=== PATIENT | female | born 1945 | race Caucasian/White ===

== ENCOUNTER 2018-05-13 17:15 | Inpatient (IN) | payer MEDICARE, MEDICAID ==
[~2018-05-13] VITALS: Ht 157.5 cm; Wt 90.2 kg
--- NOTE | ~2018-05-13 | PN ---
PATIENT:KIMBERLEE MATTHEW MEDICAL RECORD: [id number] LOCATION:PATRICIO Llamas112 ADMISSION DATE: 05/13/18 PROGRESS NOTE DATE OF SERVICE: 05/25/2018 SUBJECTIVE: The patient's case was discussed with staff. She has no new complaint. OBJECTIVE: The patient is in good behavioral control with limited insight about her condition, but she is severely impaired cognitively. Earlier today, she was actively hallucinating and carrying on a conversation with 2 people not present, her mother and someone else. She does not have any real recollection of this. I am concerned that perhaps some of her agitation is related to discomfort that she is unable to express. Based on this, I am going to treat her with a low but scheduled dose of Ultram. ASSESSMENT: No change in diagnoses. PLAN: The patient will be started on a scheduled dose of Ultram to see if that relieves some of her discomfort. If so, it may improve her behavior. Her long-term prognosis is guarded. TRANSINT:[id number] Voice Confirmation ID: [id number] DOCUMENT ID: [id number] CALEB YU MD at 1440 CC: [id number] DICTATION DATE: 05/25/18 1347 SALES AND TRAINING SPECIALIST: 05/25/18 1355 ADM IN [place] [id number] [place] [address]
--- NOTE | ~2018-05-13 | PN ---
PATIENT:KIMBERLEE MATTHEW MEDICAL RECORD: [id number] LOCATION:PATRICIO DiasAva112 ADMISSION DATE: 05/13/18 PROGRESS NOTE DATE OF SERVICE: 05/31/2018 SUBJECTIVE: The patient's case was discussed with staff. She has no new complaint. OBJECTIVE: The patient continues to be very disorganized. She answers questions but they really do not make much sense. She is continuing to yell out almost constantly. She denies overt psychotic symptoms, but then she is displaying them. I am concerned that the patient may be having a great deal of discomfort and is just so demented, she cannot tell us what is going on. Based on this line of thinking, she is going to be taken off of the scheduled Ultram and placed on a Duragesic patch. I think her long-term prognosis is guarded. TRANSINT:[id number] Voice Confirmation ID: [id number] DOCUMENT ID: [id number] CALEB YU MD at 1351 CC: [id number] DICTATION DATE: 05/31/18 1241 GOVERNMENT AFFAIRS RESEARCHER: 05/31/181950 ADM IN [facility] [address] [place] [address]
--- NOTE | ~2018-05-13 | PN ---
PATIENT:KIMBERLEE MATTHEW MEDICAL RECORD: [id number] LOCATION:PATRICIO LlamasRoxane ADMISSION DATE: 05/13/18 PROGRESS NOTE DATE OF SERVICE: 05/29/2018 SUBJECTIVE: The patient's case was discussed with staff. She has no new complaint. OBJECTIVE: The patient is in good behavioral control with limited insight about her condition. She does tolerate her medicines well. She is calmer today, but still has some behavioral outbursts and has been yelling for her mother some. She is still not eating very well, but she is morbidly obese. In the long run this may develop into a serious nutritional problem, but it would help her to lose some weight. We just do not want her to stop eating altogether. TRANSINT:[id number] Voice Confirmation ID: [id number] DOCUMENT ID: [id number] CALEB YU MD at 1234 CC: [id number] DICTATION DATE: 05/29/18 1417 AIR TRAFFIC CONTROL SPECIALIST: 05/29/18 1423 ADM IN [place] [id number] [place] [address]
--- NOTE | ~2018-05-13 | PN ---
PATIENT:KIMBERLEE MATTHEW MEDICAL RECORD: [id number] LOCATION:LarissaYUNIAp LlamasRoxane ADMISSION DATE: 05/13/18 PROGRESS NOTE DATE OF SERVICE: 05/21/2018 SUBJECTIVE: The patient's case was discussed with staff. She has no new complaint. OBJECTIVE: The patient is somewhat sedated. She has pretty limited insight. ASSESSMENT: No change in diagnoses. PLAN: Current medicines have been reviewed. I suspect that she may not be tolerating her Geodon very well. I am going to discontinue it. She has some lab that is pending. ASSESSMENT: No change in diagnoses. As above, the Geodon will be stopped. TRANSINT:[id number] Voice Confirmation ID: [id number] DOCUMENT ID: [id number] CALEB YU MD at 1324 CC: [id number] DICTATION DATE: 05/21/18 1358 REDIPPER: 05/21/18 1401 ADM IN [place] [address] [place] [id number]
--- NOTE | ~2018-05-13 | PN ---
PATIENT:KIMBERLEE MATTHEW MEDICAL RECORD: [id number] LOCATION:PATRICIO Brito ADMISSION DATE: 05/13/18 PROGRESS NOTE DATE OF SERVICE: 05/24/2018 SUBJECTIVE: The patient's case was discussed with staff. She has no new complaint. OBJECTIVE: The patient denies intent to harm herself or others. She generally tolerates her medicines well. She has been agitated and received p.r.n. Ativan today. ASSESSMENT: No change in diagnoses. PLAN: The patient has urine that shows evidence of infection. It may be a low level and chronic, related to the indwelling Alvarado. I have been told that the Alvarado is required and cannot be pulled. I think the patient is also dehydrated with an elevation of her BUN and creatinine. She is not eating well at all. Her long-term prognosis is exceedingly poor unless something can be done to turn this situation around. Obviously, the Seroquel is not helping since she is still hallucinating and calling out for her mother. I am going to discontinue it and we will start her on Geodon at a dose of 20 mg twice daily. TRANSINT:[id number] Voice Confirmation ID: [id number] DOCUMENT ID: [id number] CALEB YU MD at 1319 CC: [id number] DICTATION DATE: 05/24/18 1011 HUMAN RESOURCES EXECUTIVE: 05/24/18 1206 ADM IN [facility] [address] [place] [address]
--- NOTE | ~2018-05-13 | PN ---
PATIENT:KIMBERLEE MATTHEW MEDICAL RECORD: [id number] LOCATION:PATRICIO Llamas112 ADMISSION DATE: 05/13/18 PROGRESS NOTE DATE OF SERVICE: 05/28/2018 SUBJECTIVE: The patient's case was discussed with staff. She has no new complaint. OBJECTIVE: The patient is in good behavioral control with limited insight about her condition. She does tolerate her medicines well. ASSESSMENT: No change in diagnoses. PLAN: Supportive and educational interventions were made. Long-term prognosis is guarded. I am going to increase the dose of her Klonopin slightly since she did not have p.r.n. medication yesterday for some agitation. We are still waiting on hospice to tell us if she is going to be accepted into their program. TRANSINT:[id number] Voice Confirmation ID: [id number] DOCUMENT ID: [id number] CALEB YU MD at 1341 CC: [id number] DICTATION DATE: 05/28/18 1442 FOOT ROENTGENOLOGIST: 05/28/18 1447 ADM IN [place] [address] [place] [address]
--- NOTE | ~2018-05-13 | PN ---
PATIENT:KIMBERLEE MATTHEW MEDICAL RECORD: [id number] LOCATION:PATRICIO Brito ADMISSION DATE: 05/13/18 PROGRESS NOTE DATE OF SERVICE: 06/01/2018 SUBJECTIVE: The patient's case was discussed with staff. She has no new complaint. OBJECTIVE: The patient is continuing to yell out. She is clearly very disorganized. She has very limited insight about her condition. The family does not want her referred for hospice or palliative care, which is of course fine, but there just does not seem to be much more that can be done for this woman who is clearly extremely distressed. ASSESSMENT: No change in diagnoses. PLAN: The patient will have her Klonopin increased to 1 mg twice daily. Her long-term prognosis is guarded. TRANSINT:[id number] Voice Confirmation ID: [id number] DOCUMENT ID: [id number] CALEB YU MD at 1416 CC: [id number] DICTATION DATE: 06/01/18 1552 LINUX PROGRAMMER: 06/01/18 1627 ADM IN [place] [id number] [place] [id number]
--- NOTE | ~2018-05-13 | PN ---
PATIENT:KIMBERLEE MATTHEW MEDICAL RECORD: [id number] LOCATION:PATRIICO Llamas112 ADMISSION DATE: 05/13/18 PROGRESS NOTE DATE OF SERVICE: 05/27/2018 SUBJECTIVE: The patient's case was discussed with staff. She has no new complaint. OBJECTIVE: The patient is in good behavioral control with limited insight about her condition. She does tolerate her medicines well. ASSESSMENT: No change in diagnoses. PLAN: Brief supportive and educational interventions were made. The patient's long-term prognosis is guarded. She did receive p.r.n. medication last night, but I think that may have been somewhat of an isolated event given the description. I am going to keep her on current medications. She does have a therapeutic Depakote level. She still is not eating adequately, but she is obese and I am not concerned about weight loss at this point. TRANSINT:[id number] Voice Confirmation ID: [id number] DOCUMENT ID: [id number] CALEB YU MD at 1407 CC: [id number] DICTATION DATE: 05/27/18 1501 CONCRETE TILE MACHINE OPERATOR: 05/27/18 1528 ADM IN [facility] [address] [place] [address]
--- NOTE | ~2018-05-13 | PN ---
PATIENT:KIMBERLEE MATTHEW MEDICAL RECORD: [id number] LOCATION:PATRICIO Llamas112 ADMISSION DATE: 05/13/18 PROGRESS NOTE DATE OF SERVICE: 05/22/2018 SUBJECTIVE: The patient's case was discussed with staff. She has no new complaint. OBJECTIVE: The patient has limited insight about her condition. She generally tolerates her medicines well. ASSESSMENT: No change in diagnoses. PLAN: Current medicines and therapies have been reviewed and will be maintained. Long-term prognosis is guarded. TRANSINT:[id number] Voice Confirmation ID: [id number] DOCUMENT ID: [id number] CALEB YU MD at 1053 CC: [id number] DICTATION DATE: 05/22/18 1332 PEDIATRIC DIETICIAN: 05/22/18 1337 ADM IN [place] [id number] [place] [address]
--- NOTE | ~2018-05-13 | PN ---
PATIENT:KIMBERLEE MATTHEW MEDICAL RECORD: [id number] LOCATION:PATRICIO LlamasRoxane ADMISSION DATE: 05/13/18 PROGRESS NOTE DATE OF SERVICE: 05/16/2018 SUBJECTIVE: The patient's case was discussed with staff. She has no new complaint. OBJECTIVE: The patient is not eating very well and that is of concern, but it would be a long-term concern since she is actually morbidly obese and so this could not be something that is longstanding. She did sleep well last night. She has tolerated her medications reasonably well and there has not been any significant agitation today. She did have a subtherapeutic Depakote level 2 days ago, but I suspect she had not been taking the medicine consistently given the dose she was on, the level should have been higher. I am told that she is compliant with medications now, so I will check another level in a few days, but even with that, I am not entirely sure that Depakote is needed in this case. TRANSINT:[id number] Voice Confirmation ID: [id number] DOCUMENT ID: [id number] CALEB YU MD at 1210 CC: [id number] DICTATION DATE: 05/16/18 1230 DESIZING MACHINE OPERATOR HEAD END: 05/16/18 1238 ADM IN [place] [address] [place] [address]
--- NOTE | ~2018-05-13 | PN ---
PATIENT:KIMBERLEE MATTHEW MEDICAL RECORD: [id number] LOCATION:PATRICIO Llamas112 ADMISSION DATE: 05/13/18 PROGRESS NOTE DATE OF SERVICE: 06/05/2018 SUBJECTIVE: The patient's case was discussed with staff. She has no new complaint. OBJECTIVE: The patient denies intent to harm herself or others. She is awake and intermittently still yelling for her mother. ASSESSMENT: No change in diagnoses. PLAN: The patient's prognosis is poor. She has very limited insight about her situation. Followup is to be with her primary care detention physician. It is my opinion as I have stated elsewhere in the medical record that given her overall condition that hospice or palliative care is certainly appropriate. TRANSINT:[id number] Voice Confirmation ID: [id number] DOCUMENT ID: [id number] CALEB YU MD at 1151 CC: [id number] DICTATION DATE: 06/05/18 1420 PRODUCT STRATEGY DIRECTOR: 06/05/18 1442 DIS IN 06/05/18 [facility] [address] [place] [address]
--- NOTE | ~2018-05-13 | PN ---
PATIENT:KIMBERLEE MATTHEW MEDICAL RECORD: [id number] LOCATION:PATRICIO LlamasRoxane ADMISSION DATE: 05/13/18 PROGRESS NOTE DATE OF SERVICE: 05/19/2018 SUBJECTIVE: The patient's case was discussed with staff. She has no new complaint. OBJECTIVE: The patient ate nothing yesterday. Staff is trying to feed her today with almost no significant improvement. She was agitated last night and required Haldol and Ativan on a p.r.n. basis twice because of this agitation. She is continuing to yell out and be extremely confused. She is taking 40 mg of Geodon a day and 1000 mg of Depakote a day. ASSESSMENT: No change in diagnoses. PLAN: The patient's condition is grave. She is clearly going to have a bad outcome if she does not increase her oral intake. She is taking her medications and I have started her on an appetite stimulating medicine. Her long-term prognosis is unfortunately poor. TRANSINT:[id number] Voice Confirmation ID: [id number] DOCUMENT ID: [id number] CALEB YU MD at 1628 CC: [id number] DICTATION DATE: 05/19/18 1457 ENVIRONMENTAL STUDIES PROGRAM DIRECTOR: 05/19/18 1516 ADM IN [place] [address] [place] [address]
--- NOTE | ~2018-05-13 | PN ---
PATIENT:KIMBERLEE MATTHEW MEDICAL RECORD: [id number] LOCATION:PATRICIO LlamasRoxane ADMISSION DATE: 05/13/18 PROGRESS NOTE DATE OF SERVICE: 05/23/2018 SUBJECTIVE: The patient's case was discussed with staff. She has no new complaint. OBJECTIVE: The patient is severely impaired cognitively. She is still actively hallucinating and yelling for her mother. She is very difficult to calm, reassure, and redirect. She has required p.r.n. Ativan again this morning. ASSESSMENT: No change in diagnoses. PLAN: The patient is actually eating a little bit better. I am going to check some baseline labs including a UA. I will also prescribe a low dose of Klonopin on a scheduled basis to relieve some of the anxiety that I think is driving her agitation. TRANSINT:[id number] Voice Confirmation ID: [id number] DOCUMENT ID: [id number] CALEB YU MD at 1002 CC: [id number] DICTATION DATE: 05/23/18 1110 WAFFLE MACHINE OPERATOR: 05/23/18 1142 ADM IN [facility] [address] [place] [id number]
--- NOTE | ~2018-05-13 | PSY ---
PATIENT NAME:KIMBERLEE MATTHEW MEDICAL RECORD: [id number] : 47 LOCATION:LarissaLUPE Llamas1122 ADMISSION DATE: 05/13/18 ACCOUNT: [id number] PSYCHIATRIC EVALUATION DATE OF EVALUATION: 05/14/18 IDENTIFYING DATA: The patient is 72 years old and she is admitted to the hospital on a voluntary basis. CHIEF COMPLAINT: Aggression. HISTORY OF PRESENT ILLNESS: The patient lives in the [facility] and has a history of dementia. She has been yelling out for her mother. She is actively hallucinating and she has been combative with staff and other residents. The [facility] has tried to intervene with behavioral measures, but it has been unsuccessful. The patient is a very poor historian. She is clearly quite impaired cognitively, but she is trying to cooperate and she is giving me answers that are nonsensical. For example, she tells me that she is 22 years old and then goes on to tell me that she has lived in [place] for 50 years. This is said back to back and when asked to reconcile it, she has puzzled. She denies that she wants to hurt herself or others. PAST MEDICAL HISTORY: Significant for stroke, diabetes, hyperlipidemia, hypertension, congestive heart failure, urinary incontinence that is chronic with an indwelling Alvarado, acid reflux, hysterectomy. PAST PSYCHIATRIC HISTORY: Significant for an established diagnosis of dementia, but I am not sure if she has a pre-dementia history of depression and anxiety, although it is listed as current problems. I will have to get collateral sources of information on that. FAMILY HISTORY: The patient denies a family psychiatric history, but again she is unreliable. ALLERGIES: PENICILLIN, SULFUR, AND THE INFLUENZA VACCINE ALONG WITH HYDROCODONE. MEDICATIONS: Current medications include Plavix, Lopressor, Zoloft, Zocor, Depakote, Colace, Pepcid, Ventolin, Zofran, Ultram and Tylenol. SOCIAL HISTORY: The patient lives in the [facility]. Her in 1998. She has 5 children and is a retired stenographer secretary. There is no history of drug or alcohol abuse. She is a former cigarette smoker. MENTAL STATUS EXAMINATION: The patient is awake, alert and oriented to person only. Her mood is anxious. Her affect is constricted. Thought processes are circumstantial. Memory, concentration, and abstraction abilities are moderately impaired and she denies any active intent to harm herself or others as well as any overt psychotic symptoms. ASSETS: Supportive family members. LIABILITIES: Limited insight. DIAGNOSTIC IMPRESSION: AXIS I: Vascular dementia. AXIS II: None. AXIS III: Hypertension, diabetes, congestive heart failure, status post stroke, neuropathy and osteoarthritis. She apparently may have a history of seizure disorder, although I am not clear on that. AXIS IV: Moderate. AXIS V: 25. PLAN: At this time, the patient is admitted to the hospital secondary to aggressive behavior at the [facility]. She will be treated with both mood stabilizing and memory enhancing medications. Her long-term prognosis is guarded. TRANSINT:[id number] Voice Confirmation ID: [id number] DOCUMENT ID: [id number] CALEB YU MD at 1435 CC: [id number] DICTATION DATE: 05/14/18 1355 SENIOR PRINCIPAL ARCHITECT: 05/14/18 1412 ADM IN [place] [id number] [place] [id number]
--- NOTE | ~2018-05-13 | PN ---
PATIENT:KIMBERLEE MATTHEW MEDICAL RECORD: [id number] LOCATION:NIKHILAp Llamas112 ADMISSION DATE: 05/13/18 PROGRESS NOTE DATE OF SERVICE: 06/04/2018 SUBJECTIVE: The patient's case was discussed with staff. She has no new complaint. OBJECTIVE: The patient denies intent to harm herself or others. She does continue to yell out for others. She has very limited insight and is quite advanced in her dementia. ASSESSMENT: No change in diagnoses. PLAN: Supportive and educational interventions were made. The patient is severely impaired and this is either at or very close to her baseline level of functioning and that has been explained to the longterm. They indicate that they can manage her, and based on this she is going to be transitioned out of the hospital and back to the longterm tomorrow. TRANSINT:[id number] Voice Confirmation ID: [id number] DOCUMENT ID: [id number] CALEB YU MD at 1406 CC: [id number] DICTATION DATE: 06/04/18 1355 RACE BOARD ATTENDANT: 06/04/18 1419 ADM IN [facility] [address] [place] [address]
--- NOTE | ~2018-05-13 | PN ---
PATIENT:KIMBERLEE MATTHEW MEDICAL RECORD: [id number] LOCATION:PATRICIO Llamas112 ADMISSION DATE: 05/13/18 PROGRESS NOTE DATE OF SERVICE: 06/03/2018 SUBJECTIVE: The patient's case was discussed with staff. She has no new complaint. OBJECTIVE: The patient continues to yell out a great deal. She has a therapeutic Depakote level. She is tolerating her medicines reasonably well. She has very limited insight about her situation. ASSESSMENT: No change in diagnoses. PLAN: The patient's Geodon has been discontinued. She will be monitored for clinical changes associated with her current medicines. TRANSINT:[id number] Voice Confirmation ID: [id number] DOCUMENT ID: [id number] CALEB YU MD at 1340 CC: [id number] DICTATION DATE: 06/03/18 1430 SHEET METAL ENGINEER: 06/03/18 1542 ADM IN [facility] [address] [place] [address]
--- NOTE | ~2018-05-13 | PN ---
PATIENT:KIMBERLEE MATTHEW MEDICAL RECORD: [id number] LOCATION:PATRICIO Llamas112 ADMISSION DATE: 05/13/18 PROGRESS NOTE DATE OF SERVICE: 05/29/2018 SUBJECTIVE: The patient's case was discussed with staff. She has no new complaint. OBJECTIVE: The patient is still yelling for her mother some. The yelling is better, and by that I mean it is not as frequent or intense. She still is not eating adequately. She has very limited insight about her situation. ASSESSMENT: No change in diagnoses. PLAN: Supportive and educational interventions were made. Her long-term prognosis is guarded. TRANSINT:[id number] Voice Confirmation ID: [id number] DOCUMENT ID: [id number] CALEB YU MD at 1226 CC: [id number] DICTATION DATE: 05/30/18 1240 STORM CHASER: 05/30/18 1257 ADM IN [facility] [address] [place] [address]
--- NOTE | ~2018-05-13 | PN ---
PATIENT:KIMBERLEE MATTHEW MEDICAL RECORD: [id number] LOCATION:PATRICIO Llamas112 ADMISSION DATE: 05/13/18 PROGRESS NOTE DATE OF SERVICE: 05/15/2018 SUBJECTIVE: The patient's case was discussed with staff. She has no new complaint. OBJECTIVE: The patient is in good behavioral control with limited insight about her condition. She does tolerate her medicines well. Her Depakote level yesterday was subtherapeutic at 20. This is much less than what I would have guessed given the scheduled dose that she takes. I have asked her if she is taking her medicine and even though she is unreliable, she insists that she is. Nursing notes indicate that she is too so, I am not really sure how to explain this, but I will monitor her and check another level in a couple of days. TRANSINT:[id number] Voice Confirmation ID: [id number] DOCUMENT ID: [id number] CALEB YU MD at 1213 CC: [id number] DICTATION DATE: 05/15/18 1501 CULTURED MARBLE PRODUCTS MAKER: 05/15/18 1512 ADM IN [place] [address] [place] [address]
--- NOTE | ~2018-05-13 | PN ---
PATIENT:KIMBERLEE MATTHEW MEDICAL RECORD: [id number] LOCATION:PATRICIO Llamas112 ADMISSION DATE: 05/13/18 PROGRESS NOTE DATE OF SERVICE: 05/26/2018 SUBJECTIVE: The patient's case was discussed with staff. She has no new complaint. OBJECTIVE: The patient denies intent to harm herself or others. She generally tolerates her medicines well. Eye contact is fair. Concentration is fair. ASSESSMENT: No change in diagnoses. PLAN: Current medicines have been reviewed and will be maintained. The patient continues to have episodes of yelling out and hallucinating. I am not optimistic that I am going to be able to adequately treat this. I think that it is appropriate to consider hospice or palliative care for her given her high level of distress and inability to relieve her symptoms without making her sedated. TRANSINT:[id number] Voice Confirmation ID: [id number] DOCUMENT ID: [id number] CALEB YU MD at 1449 CC: [id number] DICTATION DATE: 05/26/18 1454 RESTAURANT RECRUITER: 05/26/18 1511 ADM IN [facility] [address] [place] [address]
--- NOTE | ~2018-05-13 | DS ---
PATIENT:KIMBERLEE MATTHEW :47 MEDICAL RECORD: [id number] DISCHARGE SUMMARY ADMISSION DATE: 05/13/18 DISCHARGE DATE: 06/05/18 IDENTIFYING DATA: The patient is 72 years old and she was admitted to the hospital on a voluntary basis secondary to aggression. The patient lives in a local long term and has a history of dementia. She has been yelling out for her mother and actively hallucinating. She has been combative with the staff at the long term and has even been combative with some other residents. The long term has tried to intervene with behavioral measures and some pharmacology, but it has been unsuccessful. They referred the patient to us for evaluation and treatment. She is profoundly confused and believes that she is 22 years old and then says she has lived in [place] for 50 years. HOSPITAL COURSE: The patient was admitted to the hospital and fully evaluated from a medical, psychological, and social standpoint. It was determined that she had vascular dementia as evidenced by poorly controlled hypertension and diabetes for many years. She has also had a previous stroke which contributed to the diagnosis. She was treated with mood stabilizing and memory enhancing medications and required extensive pharmacologic management in an effort to get the best balance of desired results and side effects. She was referred to hospice for comfort care, but the family refused that referral. She was subsequently discharged back to the long term, but was continuing to have bizarre delusional statements and at times to be agitated, although was primarily limited to personal care. This was felt to be the best balance that can be arranged between not sedating her too much, but controlling some of these very difficult to manage psychotic and agitated symptoms. DISCHARGE DIAGNOSES: AXIS I: Vascular dementia. AXIS II: None. AXIS III: Hypertension, diabetes, congestive heart failure, status post stroke, neuropathy and osteoarthritis. She also has a possible seizure disorder. AXIS IV: Moderate. AXIS V: Global assessment of functioning is 25. PLAN: At the time of discharge, the patient was not directly or acutely dangerous, but was certainly disruptive. She continued to yell for her mother or others a great deal of the time when she was awake. She is not over-sedated, but still is about as calm as can reasonably be achieved without causing her to be over sedated. Her long-term prognosis is exceedingly poor and it continues to be my recommendation that this is an end-stage disease process that is very advanced and that making her comfortable through palliative care measures is the most appropriate course. TRANSINT:[id number] Voice Confirmation ID: [id number] DOCUMENT ID: [id number] DISCHARGE SUMMARY REPORT [id number] KIMBERLEE MATTHEW PETER MD at 1354 CC: [id number] DICTATION DATE: 06/08/18 1433 SPEECH AND DRAMA TEACHER: 06/09/18 0631 DIS IN 06/05/18 [id number] [place] [address]
--- NOTE | ~2018-05-13 | PN ---
PATIENT:KIMBERLEE MATTHEW MEDICAL RECORD: [id number] LOCATION:[facility] ADMISSION DATE: 05/13/18 PROGRESS NOTE DATE OF SERVICE: 05/20/2018 SUBJECTIVE: The patient's case was discussed with staff. She has no new complaint. OBJECTIVE: The patient is quite disorganized. She is difficult to redirect. She continues to have ongoing delusional thought processes. She is calling for her mother and is difficult to redirect. She has required p.r.n. medication because of the agitation. ASSESSMENT: No change in diagnoses. PLAN: The patient has not responded to the Trilafon. I am going to discontinue it and will start her on Geodon at a dose of 20 mg twice daily. Clearly, the psychotic and agitated behavior is something of significant concern. I think that her long-term prognosis is exceedingly poor. At this point, I believe the psychotic and agitated behaviors related to an advanced dementia. TRANSINT:[id number] Voice Confirmation ID: [id number] DOCUMENT ID: [id number] CALEB YU MD at 1305 CC: [id number] DICTATION DATE: 05/20/18 1649 MULTI SENSOR OPERATOR: 05/20/18 1657 ADM IN [id number] [place] [address]
--- NOTE | ~2018-05-13 | PN ---
PATIENT:KIMBERLEE MATTHEW MEDICAL RECORD: [id number] LOCATION:[facility] ADMISSION DATE: 05/13/18 PROGRESS NOTE DATE OF SERVICE: 05/18/2018 SUBJECTIVE: The patient's case was discussed with staff. She has no new complaint. OBJECTIVE: The patient denies intent to harm herself or others. She generally tolerates her medicines well. She is not eating well at all. ASSESSMENT: No change in diagnoses. PLAN: The patient will be given Zoloft at a higher dose of 100 mg daily to assist with appetite stimulation. In addition to this, I am going to start her on Megace for the same reason. She does have a urinary tract infection, which may be affecting her cognition and behavior some, but she is on day 4 or 5 of antibiotics, so I am not sure how much of a factor this is. Currently, she is extremely disorganized and still is yelling and calling out for her mother. TRANSINT:[id number] Voice Confirmation ID: [id number] DOCUMENT ID: [id number] CALEB YU MD at 1132 CC: [id number] DICTATION DATE: 05/18/18 1418 CUSTOMER ASSOCIATE: 05/18/18 1423 ADM IN [facility] [address] [place] [address]
--- NOTE | ~2018-05-13 | PN ---
PATIENT:KIMBERLEE MATTHEW MEDICAL RECORD: [id number] LOCATION:[facility] ADMISSION DATE: 05/13/18 PROGRESS NOTE DATE OF SERVICE: 05/17/2018 SUBJECTIVE: The patient's case was discussed with staff. She has no new complaint. OBJECTIVE: The patient is in good behavioral control with limited insight about her condition. She does tolerate her medications well. She did require some p.r.n. medication today. She is taking Depakote and Trilafon, and she has a subtherapeutic Depakote level from few days ago. I am going to order another level for tomorrow. TRANSINT:[id number] Voice Confirmation ID: [id number] DOCUMENT ID: [id number] CALEB YU MD at 1408 CC: [id number] DICTATION DATE: 05/17/18 1214 GUIDANCE ADVISER: 05/17/18 1225 ADM IN [id number] [place] [address]
--- NOTE | ~2018-05-13 | PN ---
PATIENT:KIMBERLEE MATTHEW MEDICAL RECORD: [id number] LOCATION:[facility] ADMISSION DATE: 05/13/18 PROGRESS NOTE DATE OF SERVICE: 06/02/2018 SUBJECTIVE: The patient's case was discussed with staff. She has no new complaint. OBJECTIVE: The patient continues to yell. She is very disorganized and calling for her mother. She denies that she is in pain. I am not sure that the Duragesic patch has made any difference in how she is responding, but I consider her situation to be critical and that she is yelling almost constantly or she is asleep. Her dementia is so advanced that it is really impossible to rationally discuss what is going on. I am going to go ahead and hold her Geodon since it is not going to be something they are going to continue at the intermediate. TRANSINT:[id number] Voice Confirmation ID: [id number] DOCUMENT ID: [id number] CALEB YU MD at 1419 CC: [id number] DICTATION DATE: 06/02/18 1433 COMMUNICATION INSTRUCTOR: 06/02/18 [address] [facility] [address] [id number]
[2018-05-13] MEDS ORDERED: PLAVIX75 MG PO (19:34)
[2018-05-13 20:00] VITALS: BP 138/45
[2018-05-14 05:32] VITALS: BP 114/58; BMI 39.1
[2018-05-14] MEDS ORDERED: LANTUS 100 UNIT/ML SQ (06:34)
[2018-05-14] MEDS ORDERED: LOPRESSOR25 MG PO (06:36)
[2018-05-14] MEDS ORDERED: GLYCOLAX527 GM PO (06:37)
[2018-05-14] MEDS ORDERED: ZOLOFT50 MG PO (06:39)
[2018-05-14] MEDS ORDERED: ZOCOR20 MG PO (06:40)
[2018-05-14] MEDS ORDERED: DEPAKOTE SPRIN125 MG PO (06:41)
[2018-05-14] MEDS ORDERED: COLACE100 MG PO (06:42)
[2018-05-14] MEDS ORDERED: PEPCID AC20 MG PO (06:42)
[2018-05-14] MEDS ORDERED: NYSTATIN1 PWD TOPICAL ×2 (06:43→06:57)
[2018-05-14] MEDS ORDERED: NOVOLOG 100 UNIT/ML (06:50)
[2018-05-14] MEDS ORDERED: PLAVIX75 MG PO (06:51)
[2018-05-14] MEDS ORDERED: LISINOPRIL5 MG PO (06:53)
[2018-05-14] MEDS ORDERED: KEPPRA500 MG PO (06:53)
[2018-05-14] MEDS ORDERED: ULTRAM50 MG PO ×2 (06:54→07:00)
[2018-05-14] MEDS ORDERED: ALBUTEROL2.5 MG/3 M INH (06:56)
[2018-05-14] MEDS ORDERED: ONDANSETRON4 MG/2 M3 IV (06:58)
[2018-05-14] MEDS ORDERED: ZOFRAN4 MG PO (06:59)
[2018-05-14] MEDS ORDERED: ACETAMINOPHEN325 MG PO (07:00)
[2018-05-14 07:48] LABS: BASOPHILS 0.2 % (0-2); EOSINOPHILS 2.9 % (0-7); HEMATOCRIT 40.3 % (36.0-48.0); HEMOGLOBIN 13.6 g/dL (12-16); IMMATURE GRANULOCYTES 0.1 % (0-5); LYMPHOCYTES 30.7 % (15-50); MCH 29.2 pg (26.0-34.0); MCHC 33.7 g/dL (31.0-37.0); MCV 86.5 fL (80.0-100.0); MEAN PLATELET VOLUME 9.2 fL (7.4-10.4); MONOCYTES 7.1 % (2-11); PLATELET COUNT 179 10x3/uL (130-400); RBC 4.66 10x6/uL (4.00-5.40); RDW 13.1 % (11.5-14.5); WBC 8.5 10x3/uL (4.8-10.8)
[2018-05-14 08:30] LABS: ALBUMIN 2.9 g/dL (3.4-5.0); BILIRUBIN - TOTAL 0.33 mg/dL (0.2-1.3); CALCIUM 8.3 mg/dL (8.5-10.1); CHOL - HDL RATIO 4.9 ratio (2.3-4.1); CREATININE - SERUM 1.8 mg/dL (0.6-1.3); LDL-HDL RATIO 2.8 ratio (1.5-3.5); POTASSIUM - SERUM 4.1 mmol/L (3.5-5.1); PROTEIN - SERUM 6.9 g/dL (6.4-8.2); THYROID STIMULATING HORMONE 2.96 uIU/mL (0.36-3.74); VALPROIC ACID (DEPAKOTE) 20.6 ug/mL (50.0-100.0)
[2018-05-14 08:39] LABS: ANION GAP 15.7 mmol/L (8-16); CARBON DIOXIDE 27.4 mmol/L (21.0-32.0)
[2018-05-14 09:13] VITALS: BMI 39.0
[2018-05-14 11:25] VITALS: BP 139/50
[2018-05-14 15:37] VITALS: Ht 157.5 cm; Wt 90.2 kg
[2018-05-14 19:37] VITALS: BP 163/60
[2018-05-15 06:15] LABS: RAPID PLASMA REAGIN Non Reactive (Non Reactive)
[2018-05-15 07:29] LABS: VITAMIN D 25 HYDROXY 7.4 ng/mL (30.0-100.0)
[2018-05-15 09:16] LABS: FOLATE (FOLIC ACID) - SERUM 7.1 ng/mL (>3.0)
[2018-05-15 09:58] VITALS: BP 128/65
[2018-05-15 10:48] LABS: APPEARANCE HAZY (CLEAR); BILIRUBIN NEGATIVE (NEGATIVE); COLOR YELLOW (YELLOW); EPITHELIAL CELLS 0-5 /hpf (0-5); GLUCOSE NEGATIVE (NEGATIVE); KETONE SMALL mg/dL (NEGATIVE); NITRITE POSITIVE (NEGATIVE); PROTEIN TRACE mg/dL (NEGATIVE); SPECIFIC GRAVITY 1.015 (1.005-1.020); UROBILINOGEN NORMAL (NORMAL); WHITE CELLS - URINE >50 /hpf (0-5)
[2018-05-15 10:49] LABS: BACTERIA MANY /hpf (NONE SEEN)
[2018-05-16 00:31] VITALS: BP 165/70
[2018-05-16 08:41] VITALS: BP 147/59
[2018-05-16 20:00] VITALS: BP 159/67
[2018-05-17 09:58] VITALS: BP 131/61
[2018-05-17 20:00] VITALS: BP 195/85
[2018-05-18 08:00] VITALS: BP 159/68
[2018-05-18 19:47] VITALS: BP 145/62
[2018-05-19 08:00] VITALS: BP 120/81
[2018-05-19 19:37] VITALS: BP 145/90
[2018-05-20 07:37] VITALS: BP 152/53
[2018-05-20 09:16] VITALS: BP 152/53
[2018-05-20 20:25] VITALS: BP 158/45
[2018-05-21 09:14] VITALS: BP 152/68
[2018-05-21 14:00] LABS: BASOPHILS 0.1 % (0-2); EOSINOPHILS 1.6 % (0-7); HEMATOCRIT 38.5 % (36.0-48.0); HEMOGLOBIN 12.8 g/dL (12-16); IMMATURE GRANULOCYTES 0.3 % (0-5); LYMPHOCYTES 21.5 % (15-50); MCHC 33.2 g/dL (31.0-37.0); MCV 87.1 fL (80.0-100.0); MEAN PLATELET VOLUME 9.9 fL (7.4-10.4); MONOCYTES 7.9 % (2-11); NEUTROPHILS 68.6 % (40-80); PLATELET COUNT 124 10x3/uL (130-400); RBC 4.42 10x6/uL (4.00-5.40); RDW 13.2 % (11.5-14.5); WBC 8.8 10x3/uL (4.8-10.8)
[2018-05-21 14:11] LABS: ANION GAP 13.7 mmol/L (8-16); CALCIUM 8.4 mg/dL (8.5-10.1); CARBON DIOXIDE 28.8 mmol/L (21.0-32.0); CREATININE - SERUM 1.6 mg/dL (0.6-1.3); POTASSIUM - SERUM 4.5 mmol/L (3.5-5.1)
[2018-05-21 19:41] VITALS: BP 146/69
[2018-05-22 08:58] VITALS: BP 124/51
[2018-05-22 20:00] VITALS: BP 151/44
[2018-05-23 08:00] VITALS: BP 135/42
[2018-05-23 13:37] LABS: BASOPHILS 0.2 % (0-2); EOSINOPHILS 2.8 % (0-7); HEMOGLOBIN 12.7 g/dL (12-16); IMMATURE GRANULOCYTES 0.3 % (0-5); MCH 29.1 pg (26.0-34.0); MCHC 33.4 g/dL (31.0-37.0); MEAN PLATELET VOLUME 9.7 fL (7.4-10.4); MONOCYTES 8.8 % (2-11); NEUTROPHILS 64.9 % (40-80); PLATELET COUNT 126 10x3/uL (130-400); RBC 4.37 10x6/uL (4.00-5.40); RDW 13.4 % (11.5-14.5)
[2018-05-23 13:47] LABS: ANION GAP 13.7 mmol/L (8-16); CALCIUM 8.3 mg/dL (8.5-10.1); CARBON DIOXIDE 27.4 mmol/L (21.0-32.0); CREATININE - SERUM 1.7 mg/dL (0.6-1.3); POTASSIUM - SERUM 4.1 mmol/L (3.5-5.1)
[2018-05-23 13:48] LABS: VALPROIC ACID (DEPAKOTE) 59.7 ug/mL (50.0-100.0)
[2018-05-23 19:22] VITALS: BP 156/63
[2018-05-24 08:00] VITALS: BP 144/57
[2018-05-24 08:04] LABS: APPEARANCE CLOUDY (CLEAR); BILIRUBIN NEGATIVE (NEGATIVE); COLOR YELLOW (YELLOW); GLUCOSE NEGATIVE (NEGATIVE); KETONE MODERATE mg/dL (NEGATIVE); NITRITE POSITIVE (NEGATIVE); PROTEIN 1+ mg/dL (NEGATIVE); UROBILINOGEN NORMAL (NORMAL)
[2018-05-24 08:05] LABS: AMORPHOUS SEDIMENT <1+ /lpf (NONE SEEN); BACTERIA MANY /hpf (NONE SEEN); EPITHELIAL CELLS 0-5 /hpf (0-5); MUCUS <1+ /lpf (NONE SEEN); RED CELLS - URINE OCC /hpf (0-5)
[2018-05-24 19:25] VITALS: BP 137/63
[2018-05-25 12:11] VITALS: BP 178/64
[2018-05-25 19:31] VITALS: BP 142/49
[2018-05-26 08:00] VITALS: BP 162/76
[2018-05-26 20:46] VITALS: BP 139/63
[2018-05-27 10:28] VITALS: BP 124/52
[2018-05-27 20:27] VITALS: BP 165/49
[2018-05-28 10:09] VITALS: BP 111/49
[2018-05-28 19:38] VITALS: BP 147/100; BP 97/79
[2018-05-29 10:41] VITALS: BP 119/75
[2018-05-29 20:00] VITALS: BP 155/44
[2018-05-30 10:15] VITALS: BP 188/60
[2018-05-30 20:00] VITALS: BP 136/47
[2018-05-31 11:02] VITALS: BP 148/83
[2018-05-31 19:47] VITALS: BP 127/52
[2018-06-01 07:00] VITALS: BP 119/57
[2018-06-01 19:50] VITALS: BP 172/53
[2018-06-02 10:00] VITALS: BP 123/51
[2018-06-03 08:00] VITALS: BP 111/74
[2018-06-03 11:42] LABS: BASOPHILS 0.2 % (0-2); EOSINOPHILS 1.5 % (0-7); HEMATOCRIT 40.1 % (36.0-48.0); HEMOGLOBIN 13.4 g/dL (12-16); IMMATURE GRANULOCYTES 0.2 % (0-5); LYMPHOCYTES 20.6 % (15-50); MCH 29.6 pg (26.0-34.0); MCHC 33.4 g/dL (31.0-37.0); MCV 88.5 fL (80.0-100.0); MEAN PLATELET VOLUME 9.5 fL (7.4-10.4); NEUTROPHILS 67.5 % (40-80); RBC 4.53 10x6/uL (4.00-5.40); WBC 12.3 10x3/uL (4.8-10.8)
[2018-06-03 11:45] LABS: ALBUMIN 2.8 g/dL (3.4-5.0); ANION GAP 9.8 mmol/L (8-16); BILIRUBIN - TOTAL 0.35 mg/dL (0.2-1.3); CALCIUM 8.5 mg/dL (8.5-10.1); CARBON DIOXIDE 26.1 mmol/L (21.0-32.0); CREATININE - SERUM 1.7 mg/dL (0.6-1.3); PLATELET COUNT 199 10x3/uL (130-400); POTASSIUM - SERUM 4.9 mmol/L (3.5-5.1); PROTEIN - SERUM 6.7 g/dL (6.4-8.2)
[2018-06-03 20:24] VITALS: BP 118/43
[2018-06-04] MEDS ORDERED: Duragesic TRANSDERM (13:57)
[2018-06-04] MEDS ORDERED: KLONOPIN1 MG PO (13:57)
[2018-06-04] MEDS ORDERED: DEPAKOTE SPRIN125 MG PO (13:57)
[2018-06-04] MEDS ORDERED: ZOLOFT100 MG PO (13:57)
[2018-06-04] MEDS ORDERED: ONDANSETRON4 MG/2 M3 IM (13:58)
[2018-06-04] MEDS ORDERED: LOPERAMIDE HCL2 MG PO (13:58)
[2018-06-04] MEDS ORDERED: LINZESS145 MCG PO (13:58)
[2018-06-04] MEDS ORDERED: FLORAJEN3 CAPS460 MG PO (13:58)
[2018-06-04] MEDS ORDERED: CALMOSEPTINE OI71 GM TOPICAL (13:59)
[2018-06-04] MEDS ORDERED: SENNA8.6 MG PO (13:59)
[2018-06-04] MEDS ORDERED: MEGACE40 MG PO (13:59)
[2018-06-04] MEDS ORDERED: Lantus Solostar PEN SC (13:59)
[2018-06-04] MEDS ORDERED: VITAMIN D5000 UNIT PO (14:00)
[2018-06-04 21:02] VITALS: BP 122/70
== END 2018-06-05 13:30 | DRG 57 ==
LOC: D.PSYCH 17:15
PROVIDERS: Family Medicine; Psychiatry & Neurology Psychiatry
DX: I69.318 Other symptoms and signs involving cognitive functions following cerebral infarction (principal); F01.51 Vascular dementia, unspecified severity, with behavioral disturbance; N17.9 Acute kidney failure, unspecified; N39.0 Urinary tract infection, site not specified; E11.40 Type 2 diabetes mellitus with diabetic neuropathy, unspecified; M19.90 Unspecified osteoarthritis, unspecified site; K59.00 Constipation, unspecified; B96.20 Unspecified Escherichia coli [E. coli] as the cause of diseases classified elsewhere; E66.01 Morbid (severe) obesity due to excess calories; Z68.39 Body mass index [BMI] 39.0-39.9, adult; E86.0 Dehydration; Z66 Do not resuscitate; I69.398 Other sequelae of cerebral infarction; R56.9 Unspecified convulsions; E78.5 Hyperlipidemia, unspecified; I11.0 Hypertensive heart disease with heart failure; I50.9 Heart failure, unspecified; K21.9 Gastro-esophageal reflux disease without esophagitis; F41.8 Other specified anxiety disorders; Z74.09 Other reduced mobility